=== PATIENT | female | born 1950 | race African-American/Black ===

== ENCOUNTER 2019-01-18 20:37 | Inpatient (IN) ==
--- NOTE | 2019-01-18 21:35 | Diag Imaging Result Doc PS360 ---
EXAM: FLAT/UPRIGHT ABD/1 VIEW CHEST INDICATION: abd pain constipation TECHNIQUE: 3 views COMPARISON: 12/14/2017 FINDINGS: There is abundant stool throughout the colon and rectum suggesting at least moderate constipation. There is no obstructive bowel pattern. There is no evidence of large volume free abdominal gas. There is no evidence of organomegaly. The lungs are grossly clear. There is no discrete pleural fluid collection or pneumothorax. The cardiomediastinal silhouette and central vasculature are grossly unremarkable. IMPRESSION: Suggestion of at least moderate constipation. Electronically signed by Bebeto Simon 01/18/2019 9:33 PM
[2019-01-18] MEDS ORDERED: TORADOL IV ONE (21:46)
[2019-01-18] MEDS ORDERED: NS 1,000 ML IV ONE (21:46)
--- NOTE | 2019-01-18 21:52 | PROVIDER DOCUMENTATION ---
HPI-Abdominal Pain/GI Problem - General Chief Complaint: Abdominal Pain Stated Complaint: BODY ACHES / FEVER Time Seen by Provider: 01/18/19 21:45 Source: patient Allergies/Adverse Reactions: Patient Allergies Allergy/AdvReac Type Severity Reaction Status Date / Time codeine Allergy HIVES Verified 12/14/17 20:01 Home Medications: Home Medication List Medication Instructions Recorded Confirmed Last Taken Type Alprazolam 0.25 mg PO HS 12/18/17 12/18/17 12/12/17 History Montelukast [Singulair] 10 mg PO DAILY 12/18/17 12/18/17 12/13/17 History Acetaminophen [Tylenol] 650 mg PO Q6H PRN PRN tablet 12/19/17 Unknown Rx CephALEXIN [Keflex] 250 mg PO TID #15 capsule 12/19/17 Unknown Rx Metronidazole [Flagyl] 250 mg PO TID #15 tablet 12/19/17 Unknown Rx Pantoprazole [Protonix] 40 mg PO DAILY@0700 tablet 12/19/17 Unknown Rx Pantoprazole [Protonix] 40 mg PO DAILY@0700 #15 tablet 12/19/17 Unknown Rx - History of Present Illness-ABD Nature of Presenting Problems: 68 YOF PRESENTS WITH C/O RECENT CONSTIPATION RELIEVED BY LAXATIVE, SINCE SHE HAS HAD ABDOMINAL PAIN IN [facility] THAT IS TENDER, FEVER, AND NAUSEA Abdominal Pain Onset Location: reports: [facility] Pain Radiation: reports: other (LEG) Quality of Pain: reports: aching, cramping Severity in ED: reports: moderate Onset/Duration: reports: 4-6 hours ago Timing: reports: still present Activities at Onset: reports: none Exposure to sick contacts?: No Modifying Factors: improves with: nothing Associated Symptoms: reports: denies symptoms Last BM: this morning Bruising or Bleeding Gums?: No Similar Symptoms Previously?: No Recently seen or treated by another doctor?: No Review of Systems - Adult - REVIEW OF SYSTEMS - ADULT Constitutional: reports: fever. denies: no symptoms reported, see HPI, chills, fatique, night sweats, weight gain, weight loss, other Eyes: reports: no symptoms reported. denies: see HPI, discharge, dry eyes, decreased vision, blurred vision, double vision, eye pain, redness, other Ears, Nose, Mouth & Throat: reports: no symptoms reported. denies: see HPI, ear discharge, ear pain, hearing loss, tinnitus, epistaxis, sinus problem, nose pain, loose teeth, mouth/dental pain, mouth swelling, hoarseness, throat pain, throat swelling, other Cardiovascular: reports: no symptoms reported. denies: see HPI, chest pain, edema, heart murmur, irregular heart rate, orthopnea, palpitations, poor circulation, PND, syncope, other Respiratory: reports: no symptoms reported. denies: see HPI, chronic cough, co ugh, dyspnea on exertion, excessive sputum production, hemoptysis, pleurisy, shortness of breath, wheezing, other Gastrointestinal: reports: abdominal pain. denies: no symptoms reported, see HPI, hematemesis, constipation, diarrhea, difficulty swallowing, frequent heartburn, nausea, poor appetite, rectal bleeding, vomiting, other Genitourinary: reports: no symptoms reported. denies: see HPI, dysuria, discharge, frequency, flank pain, frequent UTI's, hematuria, hesitency, incontinence, urinary retention, urgency, other Musculoskeletal: reports: no symptoms reported. denies: see HPI, bone pain, back pain, frequent leg cramps, joint pain, joint swelling, muscle aches, muscle weakness, neck pain, other Integumentary: reports: no symptoms reported. denies: see HPI, hives, hair loss, itching, mole changes, nail changes, rash, skin sores/ulcer, skin thickening, other Neurological: reports: no symptoms reported. denies: see HPI, ataxia, dizziness/vertigo, headache/migraines, loss of balance, numbness, paresthesia, seizure, slurred speech, syncope, tremors, other Psychiatric: reports: no symptoms reported. denies: see HPI, anxiety, anti- depressant use, alcohol/drug dependence, depression, emotional problems, insomnia, panic attacks, suicidal thoughts, other Endocrine: reports: no symptoms reported. denies: see HPI, change in skin pigment, excessive sweating, goiter, cold intolerance, heat intolerance, in creased hunger, increased thirst, polyuria, other Hematologic/Lymphatic: reports: no symptoms reported. denies: see HPI, blood clots, easy bruising, low blood count, lymphedema, prolonged bleeding, swollen lymph nodes, transfusions, other Allergic/Immunologic: reports: no symptoms reported. denies: see HPI, allergic reactions, allergic rhinitis, asthma, eczema, food allergy, frequent infections, hay fever, hives, positive PPD, urticaria, other Past History - Adult - PAST MEDICAL HISTORY-ADULT Review of Records: reports: Nursing Assessment Review, Social history reviewed & non-contributory. Major Childhood Illnesses: reports: denies history Cardiovascular: reports: denies history Respiratory: reports: denies history Gastrointestinal: reports: denies history Obstetrical/Gynecological: reports: denies history Genitourinary: reports: denies history Musculoskeletal: reports: denies history Neurological: reports: denies history Endocrine/Immune: reports: denies history Other Conditions: reports: denies history - IMMUNIZATION STATUS Childhood Immunizations: See Nurse Assessment Flu Vaccine: See Nurse Assessment - FAMILY HISTORY Family History: reviewed, not pertinent Physical Exam-General - PHYSICAL EXAM-ADULT Initial Vital Signs Reviewed: Yes - CONSTITUTIONAL General Appearance: alert, no apparent distress - EYES Eyes: PERRL/EOMI, pink conjunctivae - HEAD, EARS, NOSE, MOUTH & THROAT HENMT: normocephalic/atraumatic, moist mucous membranes, normal ENT inspection - NECK Neck: non-tender, full range of motion - RESPIRATORY Respiratory: chest non-tender, lungs clear, normal breath sounds, no respiratory distress - CARDIOVASCULAR Cardiovascular: normal peripheral pulses, regular rate, rhythm - GASTROINTESTINAL (ABDOMEN) Abdominal Exam: normal bowel sounds, no pulsatile mass, tenderness - LYMPHATIC Lymphatic: no adenopathy - MUSCULOSKELETAL Back Exam: normal inspection Extremity: normal range of motion, non-tender - SKIN Integumentary: normal color, normal turgor, warm/dry - NEUROLOGIC Neurologic: grossly normal - PSYCHIATRIC Psych/Mental Status: normal mood/affect, oriented x 3 Progress - PLAN OF CARE/RESULTS Progress/Plan/Lab Results: Vital Signs - 8 hr 01/18/19 20:54 Temperature 100.2 F H Pulse Rate 104 H Respiratory Rate 18 Blood Pressure 158/98 O2 Sat by Pulse Oximetry 97 Orders Category Date Time Status Saline Loc NOW Care 01/18/19 21:[address] ABDOMEN W/O CONTRAST [CT] Stat Exams 01/18/19 21:45 Ordered FLAT/UPRIGHT ABD/1 VIEW CHEST [RAD] Stat Exams 01/18/19 20:59 Completed BASIC METABOLIC PANEL [CHEM] Stat Lab 01/18/19 21:11 Ordered CBC WITH ELECTRONIC DIFF [HEME] Stat Lab 01/18/19 21:39 Ordered ua [URINALYSIS PL W/POSS RFLX CULT] [URINALYSIS] Stat Lab 01/18/19 21:39 Ordered Ketorolac [Toradol] Med 01/18/19 21:46 Once 30 mg IV NOW ONE Ns 1000 ml IV Bolus X1 Med 01/18/19 21:46 Ordered 0.9% Sodium Chloride Inj [Ns] 1,000 ml IV 999 mls/hr Result Diagrams: 01/18/19 22:00 01/18/19 22:00 - XRAY 1 XRAY Study: Abdomen Impression: Normal, See EMR Report (Suggestion of at least moderate constipation.) XRAY Interpretation: Suggestion of at least moderate constipation. Departure - Departure Date of Disposition Decision: 01/18/19 Time of Disposition Decision: 23:11 DIAGNOSIS: Diverticulitis Disposition: ADMITTED INPATIENT 09 Certified Medical Emergency: Emergent Condition: Stable Referrals and Follow-Ups: None,PCP [Primary Care Provider] - - Critical Care Note This patient required my direct & personal management of CC.: No Attestation - Physician/ SADIE Attestation Patient care was provided by Advanced Practice Provider:: No Advanced Practice Provider:: Grazyna Denton The physician spent face to face time with patient:: Yes Advanced Practice Provider documentation review:: Supervising physician onsite and consulted in the evaluation and care of this patient. The physician did have a face to face encounter with the patient.
[2019-01-18 22:11] LABS: BILIRUBIN URINE NEGATIVE (NEGATIVE); BLOOD URINE NEGATIVE (NEGATIVE); CLARITY CLEAR (CLEAR); COLOR YELLOW; GLUCOSE URINE NEGATIVE (NEGATIVE); KETONE URINE NEGATIVE (NEGATIVE); LEUKOCYTES URINE NEGATIVE (NEGATIVE); NITRITE URINE NEGATIVE (NEGATIVE); PROTEIN URINE NEGATIVE (NEGATIVE); UROBILINOGEN URINE NORMAL
[2019-01-18 22:17] LABS: BASO# 0.02 X1000 (0.0-0.2); BASO% 0.3 % (0.0-0.8); EOS% 1.3 % (0.0-10.0); HEMATOCRIT 38.3 % (37.0-47.0); HEMOGLOBIN 12.7 g/dL (12.0-16.0); IMM GRAN# 0.01 X1000 (0.0-0.04); IMM GRAN% 0.1 % (0.0-0.5); LYMPH# 1.05 X1000 (1.2-3.4); LYMPH% 13.7 % (20.5-51.1); MCHC 33.2 g/dL (33-37); MCV 90.5 FL (81-99); MONO# 0.36 X1000 (0.11-0.59); MONO% 4.7 % (1.7-9.3); MPV 10.2 FL (7.4-10.4); NEUT% 79.9 % (42.2-75.2); PLT 160 X1000 (130-400); RBC 4.23 XMIL (4.2-5.4); RDW 12.9 % (11.5-14.5); WBC 7.64 X1000 (4.8-10.8)
[2019-01-18 22:19] LABS: URINE SOURCE CLEAN CATCH
[2019-01-18 22:20] LABS: URINE BACTERIA 1+ /HFP; URINE CAST NONE SEEN /LPF; URINE CRYSTAL NONE SEEN /HPF; URINE EPITHELIAL CELLS >10 /HPF (<10); URINE RBC <10 /HPF (<10); URINE WBC <10 /HPF (<10); URINE YEAST NONE SEEN /HPF
[2019-01-18 22:33] LABS: AGAP 11; BUN 13 mg/dL (8-22); CALCIUM 8.5 mg/dL (8.8-10.2); CHLORIDE 100 mmol/L (98-107); COSMO 273; CREATININE 0.7 mg/dL (0.5-0.9); ESTIMATED GFR > 60; GLUCOSE 115 mg/dL (70-104); POTASSIUM 4.4 mmol/L (3.5-5.1); SODIUM 136 mmol/L (136-145); TCO2 25 mmol/L (25-35)
[2019-01-19] MEDS ORDERED: LEVAQUIN 500 MG/D5W 500 MG/100 ML IVPB IV SCH (00:25)
[2019-01-19] MEDS: TYLENOL PO PRN ×3 (01:06→18:13)
[2019-01-19] MEDS: FLAGYL 500 MG/NS 500 MG/100 ML IVPB IV SCH ×4 (02:22→20:43)
--- NOTE | 2019-01-19 06:44 | Diag Imaging Result Doc PS360 ---
EXAM: CT ABDOMEN/PELVIS W/O CONTRAST HISTORY: PAIN, FEVER, HX OF DIVERTICULITIS W/ ABSCESS TECHNIQUE: CT abdomen and pelvis without contrast COMPARISON: 12/14/2017 FINDINGS: The gallbladder is contracted. No calcified gallstones. Normal noncontrasted liver, spleen, pancreas, adrenal glands, and kidneys. No renal stones. No hydronephrosis. Normal aorta. There are scattered colonic diverticula. There is stool throughout the colon. Mild narrowing at the junction of the descending and sigmoid colon. The urinary bladder is mild to moderately distended and appears normal. The uterus has been removed. No pelvic mass. IMPRESSION: Likely diverticulitis at the junction of the descending and sigmoid colon. Follow-up imaging is recommended to ensure there is no other lesion. A preliminary report was given at 10:55 PM on 01/18/2019 This exam was performed using automated exposure control, adjustment of mA or kV according to patient size, and/or use of iterative reconstruction technique. Electronically signed by Jurgen Alvarenga 01/19/2019 6:42 AM
[2019-01-19] MEDS ORDERED: NS 1,000 ML IV PRN (10:35)
[2019-01-19] MEDS ORDERED: ZOFRAN IV PRN ×2 (10:35→19:59)
[2019-01-19] MEDS ORDERED: SODIUM CHLORIDE 0.9% INJ SCH (10:45)
[2019-01-19] MEDS ORDERED: PROTONIX IV SCH (11:00)
--- NOTE | 2019-01-19 12:19 | HISTORY AND PHYSICAL ---
PRIMARY CARE PHYSICIAN: Dr. Napoleon Shaffer PRIMARY SPECIAL EDUCATION COORDINATOR: Dr. Mims CHIEF COMPLAINT: Abdominal pain with fever. HISTORY OF PRESENT ILLNESS: Ms. Isela Henao is a 68-year-old female with a medical history of peptic ulcer disease and abscess, diverticulosis, GERD, seasonal allergies, presenting with complaints of after lunch having a fever of 104 with left upper and lower quadrant abdominal pain along with nausea but no vomiting. Denies any foods that could cause diverticulitis. States she is aware of what foods to stay away from. She had 3 normal bowel movements according to her yesterday. She did note that she had slight pain last week. The fever that she is describing was subjective up to 104. She had an abdominopelvic CT here which revealed diverticulitis at the junction of the descending and sigmoid colon, and this was without contrast. She has been initiated on Flagyl and Levaquin, and she is requesting to be transferred to [facility] to be followed by her primary care provider. She states she is feeling much better now. PAST MEDICAL HISTORY: 1. Peptic ulcer disease with abscess history. 2. Diverticulosis with diverticulitis history. 3. GERD. 4. Seasonal allergies. PAST SURGICAL HISTORY: 1. Cyst above the tailbone removed. 2. Total hysterectomy. 3. Right shoulder surgery. 4. Skin grafts on her underarms from sweat gland removal. 5. Last colonoscopy in 03/2018. SOCIAL HISTORY: She lives alone. Denies tobacco, alcohol or illicit drug use. FAMILY HISTORY: Mother had stomach cancer. Father in his 80s from a myocardial infarction. She had a sister who from heart attack and stroke in her 70s. She had 3 brothers that had massive myocardial infarctions in their 60s. ALLERGIES: Codeine. HOME MEDICATIONS: 1. Librax 5 mg p.o. twice daily. 2. Singulair 10 mg p.o. daily. 3. Tylenol 650 mg p.o. every 6 hours p.r.n. REVIEW OF SYSTEMS: A 14-point review of systems are complete, and all are negative except for those mentioned in the HPI. PHYSICAL EXAMINATION: VITAL SIGNS: Temperature 98.4, heart rate 70, respiratory rate 18, blood pressure 116/54, O2 saturation is 98% on room air. GENERAL: Ms. Isela Henao is a 68-year-old female. She is in no acute distress. She is able to answer questions appropriately. HEENT: Atraumatic and normocephalic. Pupils are equal, round and reactive to light. Extraocular movements were intact. Mucous membranes are dry. NECK: Trachea midline. CARDIOVASCULAR: S1, S2. Regular rate and rhythm. No rubs, gallops or murmurs. No lower extremity edema. Plus 2 dorsalis and radial pulses. Negative JVD or carotid bruits. PULMONARY: Clear to auscultation with bilateral breath sounds. No accessory muscle use or work of breathing noted. GASTROINTESTINAL: Tender in all 4 quadrants but more tender in the left upper and lower quadrant. Positive bowel sounds x4. Soft. It is nondistended. EXTREMITIES: Moves all extremities equally with full range of motion. NEUROLOGICAL: Alert and oriented x3. Follows commands. Sensory is intact. SKIN: Warm, dry and intact. DIAGNOSTIC DATA: White blood cells 7000, hemoglobin 12, hematocrit 38, platelet count 160. Sodium is 136, potassium 4.4, BUN is 13, creatinine 0.7, glucose 115, calcium 8.5. Urinalysis with greater than 10 epithelial cells, otherwise negative. IMAGING: Abdominal x-ray suggestion of moderate constipation. Abdominopelvic CT likely diverticulitis at the junction of the descending and sigmoid colon. ASSESSMENT AND PLAN: 1. Sigmoid colon and descending diverticulitis. She has been started on Flagyl, Levaquin, clear liquid diet, IV fluids at 75 an hour, IV Protonix. 2. Peptic ulcer disease. See number 1. Denies any blood in the stools and denies any vomiting. 3. Gastroesophageal reflux disease. See number 1. 4. Seasonal allergies. Singulair resumed. 5. DVT prophylaxis with SCDs. Dictated by DAVID Soliz for Marcus Ward MD Addendum: Patient seen and examined by myself. Agree with DAVID note. It reflects my assessment and plan. Patient is being admitted to hospital for acute diverticulitis. She is going to be transferred to [facility] as per patient request so she can be followed by her primary doctor, Dr. Shaffer. He has been already notified this patient is going there. cc: DAVID Soliz MD Gregory S. Cheatham, MD Amit V. Vora, MD [facility]
[2019-01-20] MEDS: LEVAQUIN 500 MG/D5W 500 MG/100 ML IVPB IV SCH (04:19)
[2019-01-20] MEDS: PROTONIX IV SCH ×2 (04:19→16:28)
[2019-01-20] MEDS: SODIUM CHLORIDE 0.9% INJ SCH ×2 (04:19→16:28)
[2019-01-20] MEDS: FLAGYL 500 MG/NS 500 MG/100 ML IVPB IV SCH ×4 (05:09→21:53)
[2019-01-20 07:06] LABS: BASO# 0.02 X1000 (0.0-0.2); BASO% 0.5 % (0.0-0.8); EOS# 0.06 X1000 (0.0-0.7); EOS% 1.5 % (0.0-10.0); HEMATOCRIT 36.8 % (37.0-47.0); HEMOGLOBIN 12.2 g/dL (12.0-16.0); LYMPH% 38.1 % (20.5-51.1); MCHC 33.2 g/dL (33-37); MCV 90.6 FL (81-99); MONO# 0.39 X1000 (0.11-0.59); MONO% 9.9 % (1.7-9.3); MPV 10.3 FL (7.4-10.4); NEUT# 1.97 X1000 (1.4-6.5); PLT 188 X1000 (130-400); RBC 4.06 XMIL (4.2-5.4); RDW 13.1 % (11.5-14.5); WBC 3.94 X1000 (4.8-10.8)
[2019-01-20 07:20] LABS: AGAP 11; ALB/GLOB RATIO 1.2; ALBUMIN 4.2 g/dL (3.5-5.0); ALKALINE PHOSPHATASE 65 U/L (32-104); BUN 8 mg/dL (8-22); CHLORIDE 107 mmol/L (98-107); COSMO 283; CREATININE 0.8 mg/dL (0.5-0.9); ESTIMATED GFR > 60; GLUCOSE 90 mg/dL (70-104); GOT 15 U/L (10-30); GPT 9 U/L (10-36); MAGNESIUM 2.1 mg/dL (1.5-2.7); POTASSIUM 4.1 mmol/L (3.5-5.1); SODIUM 143 mmol/L (136-145); TCO2 25 mmol/L (25-35); TOTAL BILIRUBIN 0.61 mg/dL (0.20-1.00); TOTAL PROTEIN 7.6 g/dL (6.3-8.3)
[2019-01-20] MEDS: SINGULAIR PO SCH (08:24)
[2019-01-20] MEDS ORDERED: SINGULAIR PO SCH (09:00)
--- NOTE | 2019-01-20 09:41 | PROGRESS NOTE ---
DATE: 01/20/2019 SUBJECTIVE: Isela Henao was admitted at [facility] and transferred last night. She was hospitalized for severe abdominal pain. She had sigmoid and descending colon diverticulitis. She had history of peptic ulcer disease, reflux. We have stepped her up to full liquid diet now. She is on IV Levaquin, as well as metronidazole, which we will continue. -7 cc: Napoleon Shaffer MD
[2019-01-21] MEDS: NS 1,000 ML IV PRN (04:10)
[2019-01-21] MEDS: LEVAQUIN 500 MG/D5W 500 MG/100 ML IVPB IV SCH (04:10)
[2019-01-21] MEDS: FLAGYL 500 MG/NS 500 MG/100 ML IVPB IV SCH ×4 (05:50→23:30)
[2019-01-21] MEDS: TYLENOL PO PRN ×2 (06:09→14:13)
[2019-01-21] MEDS: PROTONIX IV SCH ×2 (06:56→17:18)
[2019-01-21] MEDS: SODIUM CHLORIDE 0.9% INJ SCH ×2 (06:56→17:18)
[2019-01-21] MEDS: SINGULAIR PO SCH ×2 (07:48→09:15)
--- NOTE | 2019-01-21 09:28 | PROGRESS NOTE ---
DATE: 01/21/2019 Ms. Henao does not feel good today. She is in room 431. She says her pain abdominal pain is back and she has pain radiating to the left leg, which is unusual. SLR is positive. I am going to x-ray the lumbar spine today and give her something for constipation. Switch her to a soft diet today. -1 cc: Napoleon Shaffer MD
--- NOTE | 2019-01-21 09:56 | Diag Imaging Result Doc PS360 ---
EXAM: LUMBAR SPINE 2-VIEWS HISTORY: Back pain radiating to left leg TECHNIQUE: AP and lateral with obliques, two views COMPARISON: 04-29-17 FINDINGS: There is good alignment to the lumbar spine. No compressed vertebra. No subluxation. Small degenerative bone spurring. IMPRESSION: Mild degenerative changes. Electronically signed by Jurgen Alvarenga 01/21/2019 9:53 AM
[2019-01-21] MEDS ORDERED: DULCOLAX PR ONE (17:15)
[2019-01-21] MEDS: DULCOLAX PR ONE ×2 (17:19→17:24)
[2019-01-22] MEDS: NS 1,000 ML IV PRN ×2 (02:15→22:33)
[2019-01-22] MEDS: LEVAQUIN 500 MG/D5W 500 MG/100 ML IVPB IV SCH (04:02)
[2019-01-22] MEDS: FLAGYL 500 MG/NS 500 MG/100 ML IVPB IV SCH ×4 (05:35→22:28)
[2019-01-22] MEDS: PROTONIX IV SCH ×2 (06:07→16:32)
[2019-01-22] MEDS: SINGULAIR PO SCH (08:42)
--- NOTE | 2019-01-22 10:55 | PROGRESS NOTE ---
DATE: 01/22/2019 Ms. Henao continues to have some back pain. She has some arthritis in the lumbar spine that could be responsible for the pain. Abdomen is soft, nontender. Vital signs are stable. She has tolerated a soft diet well. The bowels have moved with the help of suppository, and she is feeling somewhat better. We are going to watch her today, and maybe discharge her tomorrow. -4 cc: Napoleon Shaffer MD
[2019-01-22] MEDS: SODIUM CHLORIDE 0.9% INJ SCH (16:32)
[2019-01-23] MEDS: LEVAQUIN 500 MG/D5W 500 MG/100 ML IVPB IV SCH (05:25)
[2019-01-23] MEDS: PROTONIX IV SCH (05:30)
[2019-01-23] MEDS: FLAGYL 500 MG/NS 500 MG/100 ML IVPB IV SCH ×2 (06:51→10:46)
[2019-01-23 07:25] VITALS: BP 149/81
[2019-01-23] MEDS: SINGULAIR PO SCH (10:45)
--- NOTE | 2019-01-23 14:33 | DISCHARGE SUMMARY ---
ADMISSION DATE: 01/18/2019 DISCHARGE DATE: 01/23/2019 HISTORY: She was admitted to [facility] on 01/19/2019, and she was transferred to [facility] on 01/20/2019, and she is being discharged on 01/23/2019. Ms. Henao who is a 68-year-old female was admitted with severe abdominal pain. She had a diagnosis of acute diverticulitis. CT scan of the abdomen was obtained, which revealed presence of diverticulitis at the junction of descending and sigmoid colon. She had a lumbar spine x-ray which revealed presence of degenerative arthritis. Flat plate of the abdomen suggested constipation. LABORATORY DATA: Revealed the white count had gone down from 7.64 to 3.94, hemoglobin was 12.2. Electrolytes were normal. BUN and creatinine was normal. Glucose was 90. Liver enzymes are normal. Urinalysis was unremarkable. COURSE IN HOSPITAL: She was treated with IV Levaquin as well as IV Flagyl. She continued to improve. Her abdominal pain is better. She has some back pain radiating to the left leg. The x- ray of the lumbar spine was performed which was negative except for arthritis. IMPRESSION: Acute diverticulitis. Degenerative arthritis of the lumbar spine. The patient will be discharged to be seen in the office in about 7 days. I am going to give her a prescription of Levaquin as well as Flagyl, which she was treated with IV Levaquin as well as IV Flagyl. She is going to continue the Librax that was given by Dr. Mims. cc: Napoleon Shaffer MD
== END 2019-01-23 12:54 | disposition home or self-care (01) | DRG 392 ==
LOC: P.ED 20:37 → P.MEDSURG 23:32 → SUATTDRO 23:32 → SUPCPDRO 23:32 → P.MEDSURG 01-19 00:43 → 4N 01-19 19:54
PROVIDERS: ADMIT Internal Medicine; ATTEND Internal Medicine
CPT/HCPCS: 72100; 74022; 74176; 80048; 80053; 81001; 83735; 85025; 94761; 96372; 99285; A9270; C9113; J1885; J1956; J7030; S0030; S0164